=== PATIENT | male | born 1970 | race Two or more races ===

== ENCOUNTER 2023-02-23 13:09 | Emergency (ER) | payer OTHER ==
[~2023-02-23] VITALS: Ht 185.4 cm; Wt 84.8 kg
[2023-02-23] MEDS ORDERED: VALTREX1000 MG (13:21)
[2023-02-24] MEDS ORDERED: PEPCID AC20 MG (12:43)
== END 2023-02-23 15:48 | disposition home or self-care (01) ==
LOC: ER 13:09
DX: K29.60 Other gastritis without bleeding (principal); M43.6 Torticollis

== ENCOUNTER 2023-02-24 12:11 | Emergency (ER) | payer OTHER ==
[~2023-02-24] VITALS: Ht 185.4 cm; Wt 82.6 kg
[~2023-02-24 12:11] MED LIST: VALTREX1000 MG
[2023-02-24] MEDS ORDERED: PEPCID AC20 MG (12:43)
[2023-02-25] MEDS ORDERED: DICLOFENAC POTA50 MG PO (05:49)
== END 2023-02-25 05:58 ==
LOC: ER 12:11
DX: B34.8 Other viral infections of unspecified site (principal); Z20.822 Contact with and (suspected) exposure to COVID-19